=== PATIENT | male | born 1960 | race Caucasian/White ===

== ENCOUNTER 2017-09-08 06:07 | Day surgery (SDC) | payer BC ==
[2017-09-08] MEDS ORDERED: LIDOCAINE 4% SOLUTION 50 ML BTL (07:37)
[2017-09-08] MEDS ORDERED: FENTAnyl 50 MCG/ML VIAL (08:12)
[2017-09-08] MEDS ORDERED: MIDAZOLAM 1 MG/ML 2 ML INJ ×3 (08:12)
== END 2017-09-08 12:39 | disposition home or self-care (01) ==
LOC: GIL 06:07
DX: Z12.11 Encounter for screening for malignant neoplasm of colon (principal); K64.4 Residual hemorrhoidal skin tags; K21.0 Gastro-esophageal reflux disease with esophagitis; K29.70 Gastritis, unspecified, without bleeding
CPT/HCPCS: 43239; 88305